=== PATIENT | female | born 1980 | race Two or more races ===

== ENCOUNTER → 2024-06-23 08:27 | Outpatient (AMB) | payer OTHER, SELFPAY ==
--- NOTE | 2024-06-23 08:32 | MHC.PC.OV ---
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 Accompanied by: Self / Same As Patient Allergies No Known Allergies Allergy (Verified 06/23/24 08:45) Medication List - Last Reconciled 06/23/24 by DELISA Pineda gabapentin 300 mg PO BID naproxen (EC-Naproxen) 500 mg PO BID Tobacco use date assessed: 06/23/24 Dental Screening Dental Screen Date: 06/23/24 Did you have a dental visit in the last 12 months?: Yes Did you have a dental problem in the last 6 months where you did not have access to dental care?: No Was dental information given to patient?: Patient has dentist HPI Fang, trigeminal neurvalgia, CLAIMS CUSTOMER SERVICE REPRESENTATIVE HPI Details The patient is a 43-year-old female with history of endometriosis presenting for post hospital visit at [facility] The patient presented with ongoing of right side of face shooting pain The patient previously treated in the Urgent care for upper respiratory infection with augmentin and flonase and an antihistamine Reports that her congestion resolved by the shooting pain persisted The patient was diagnosed at [facility] trigeminal neuralgia Head CT was not completed because both the machines were down at [place] The patient was offered to be [place] [facility] but opted to follow up outpatient instead Will put in a neurology referral The patient reports that she has been taking the Gabapentin as needed because she does not like taking medications Reports that the other night, she did not take the even dose and she was awaken at 0100 in the morning with a terrible headache She is also taking naproxen BID as needed The patient denies pain in office today. Normal neurological exam PFSH Family History Other Breast cancer Diabetes Stomach cancer Social History Housing: House Patient Tobacco Use Status: Never used Tobacco e-Cigarette/Vaping Use: Never Used Second Hand Smoke Exposure: No service: No Current occupational status: unemployed Current occupational exposures/hazards: No Cognitive needs: No Hearing needs: No Vision needs: Yes Questionnaire PHQ-9 Over the last 2 weeks, how often have you been bothered by any of the following problems? 1. Little interest or pleasure in doing things: not at all 2. Feeling down, depressed, or hopeless: not at all 3. Trouble falling or staying asleep, or sleeping too much: not at all 4. Feeling tired or having little energy: not at all 5. Poor appetite or overeating: not at all 6. Feeling bad about yourself - or that you are a failure or have let yourself or your family down: not at all 7. Trouble concentrating on things, such as reading the newspaper or watching television: not at all 8. Moving or speaking so slowly that other people could have noticed. Or the opposite - being so fidgety or restless that you have been moving around a lot more than usual: not at all 9. Thoughts that you would be better off or of hurting yourself in some way: not at all Total score: 0 Source: Developed by Drs. Ruddy Belle, Sheila Ramos, Jony Bucio and colleagues, with an educational jw from [employer] Thrive Questionnaire Date Thrive assessed: 06/23/24 I am a: Patient What is your living situation today?: I have a steady place to live Within the past 12 months, did the food you bought not last and you didn't have the money to get more?: Never true Within the past 12 months, did you worry whether your food would run out before you got money to buy more?: Never true Do you have trouble paying for medicines?: No Do you have trouble getting transportation to medical appointments?: No Do you have trouble paying your heating and electricity bill?: No Do you have trouble taking care of your child, family member or friend?: No Do you have trouble with day-to-day activities such as bathing, preparing meals, shopping, managing finances, etc.?: No Are you currently unemployed and looking for a job?: No Are you interested in more education?: No Please select the resources that you would like help with: None Currently or been in a relationship where the following occur: No concerns reported THRIVE Score: 0 AUDIT C Alcohol Use Questionnaire (AUDIT-C) 1. How often do you have a drink containing alcohol?: Never 3. How often do you have six or more drinks on one occasion?: Never Total Score: 0 RICHARD-7 AMB Questionnaire RICHARD-7 Date RICHARD - 7 assessed: 06/23/24 Feeling nervous, anxious, or on edge: 0 = Not at all Not being able to stop or control worryin = Not at all Worrying too much about different things: 0 = Not at all Trouble relaxin = Not at all Being so restless that it is hard to sit still: 0 = Not at all Becoming easily annoyed or irritable: 0 = Not at all Feeling afraid as if something awful might happen: 0 = Not at all Total RICHARD-7 score (0-4 normal; 5-9 mild; 10-14 moderate; 15-21 severe): 0 Source: Developed by Drs. Ruddy Belle, Sheila Ramos, Jony Bucio and colleagues, with an educational jw from [employer] RICHARD-7 Assessment Billing RICHARD-7 Assessment Tool: RICHARD-7 Assessment 78112 Review of Systems Const Details: Denies chills, Denies fatigue, Denies fever(s), Denies headache(s) and Denies weakness HEENT Denies change in vision, Denies dizziness, Denies headache(s), Denies hearing loss, Denies nasal congestion, Denies sinus pain, Denies sinus pressure and Denies sore throat other: on and off shooting pain to the right side of her face Card Denies chest pain, Denies lightheadedness, Denies dyspnea and Denies other (palpitations) Resp Denies cough, Denies dyspnea and Denies wheezing GI Denies abdominal pain, Denies melena, Denies hematochezia, Denies change in bowel habits, Denies dyspepsia and Denies nausea Denies hematuria and Denies dysuria Musc Denies abnormal gait, Denies myalgias, Denies arthralgias, Denies numbness and Denies tingling Skin/Breast Denies rash, Denies unusual bruising and Denies wounds Neuro Denies abnormal gait, Denies dizziness, Denies headache(s), Denies memory loss, Denies numbness, Denies Sensory deficit (Neuro), Denies tingling and Denies weakness Psych Denies anxiety, Denies depression and Denies memory loss Endo Denies cold intolerance, Denies fatigue, Denies heat intolerance, Denies polydipsia and Denies polyuria Balaji/Lymph Denies easy bleeding and Denies easy bruising Aller/Immun Denies wheezing Physical exam (Primary Care) Vital Signs: Last Vital Signs Pulse 73 06/23/24 08:34 BP 104/70 06/23/24 08:34 Pulse Ox 97 06/23/24 08:34 Oxygen Delivery Method Room Air 06/23/24 08:34 BMI result Body Mass Index 24.2 Tobacco/Smoking Status: Tobacco use Status Tobacco use date assessed 06/23/24 06/23/24 08:42 Patient Tobacco Use Status Never used Tobacco 06/23/24 08:42 e-Cigarette/Vaping Use Never Used 06/23/24 08:42 PHQ-9: PHQ-9 Score PHQ-9: Total score 0 06/23/24 08:51 Thrive Assessment: Date of Thrive Assessment Date Thrive assessed 06/23/24 06/23/24 08:42 Currently or been in a relationship where the following occur: No concerns reported Const Other: General: no acute distress, well developed, alert and awake Nutritional Appearance: well nourished Orientation/consciousness: patient oriented x3 HENMT Head: Yes normocephalic and Yes atraumatic Ears: hearing grossly normal bilaterally and TM's normal bilaterally General nose exam: Normal external nose present and Normal nares present Mouth: Normal oral and palatal mucosa present and moist mucous membranes Teeth and gingiva: dentition normal Throat: Yes oropharynx normal Eyes Pupils: Equal, round and reactive pupils present and Pupil accommodation reflex normal EOM: EOMs intact bilaterally Neck Neck: Yes normal visual inspection, Yes no lymphadenopathy and Yes trachea midline Thyroid: Thyroid normal Carotids: no bruits Lymphatic: no lymphadenopathy noted Resp Effort & Inspection: normal respiratory effort Auscultation: clear to auscultation bilaterally Cardio Rate: regular rate Rhythm: regular rhythm Heart sounds: S1 normal heart sound present, S2 normal heart sound present, no gallops, no murmurs and no rubs Bruits: no abdominal aortic bruits and no carotid bruits GI Palpation (GI): No Abdominal aortic bruit present, Soft to palpation, nontender, No hepatosplenomegaly present and No Rebound tenderness present Auscultation: normal bowel sounds General: Yes no CVA tenderness Skin General: warm and dry. Normal skin color. Normal skin turgor Lesions: no lesions Rashes: no rashes Trauma: no lacerations or abrasions Wounds: no wounds Nails: normal Neuro General: patient oriented x3, gait normal and CN's II-XI intact bilaterally Cranial nerves: Yes Equal, round and reactive pupils present Cognition (Neuro): normal cognition Gait exam (Neuro): Normal gait present Motor exam (neuro): 5/5 motor strength present throughout Sensory Exam: No Sensory deficit (Neuro) Deep tendon reflexes (DTR's): Right patellar reflex intensity grade: 2+ and Left patellar reflex intensity grade: 2+ Extrem General: Yes normal to inspection, No edema and No calf tenderness Psych Appearance: grossly normal Affect: normal affect Attitude: cooperative Thought process: Normal thought process present Coding Level of Care Code Est Pt Level 3 (11869) Diagnoses Trigeminal neuralgia of right side of face G50.0 Additional Codes RICHARD-7 Assessment Billing - RCIHARD-7 Assessment Tool: RICHARD-7 Assessment 22357 ([id number]) Time Spent (min) 29 Assessment & Plan Assessment & Plan (1) Trigeminal neuralgia of right side of face: Comment: [facility] [phone] time in july or august, [place] Code(s): G50.0 - Trigeminal neuralgia Category: Medical Plan: Patient reports facial pain x3 weeks. Reports that she went to urgent care and was diagnosed with sinusitis. She was treated with Augmentin and oral decongestion, and nasal spray. Reports that her congestion went away but the pain in her face stayed. As a result the patient went to [facility]. She was diagnosed with trigeminal neuralgia and the patient was started on gabapentin 300 mg b.i.d. and naproxen 500 mg b.i.d. with positive effects. CT head was not completed due to machine issues. We will refer the patient to Neurology. Discussed with the patient to go to the ER if her pain becomes more severe or unrelenting Orders: Referrals Neurology Referral G50.0 - Trigeminal neuralgia Medications: New naproxen (EC-Naproxen) 500 mg PO BID 60 tabs 3RF gabapentin 300 mg PO BID 60 caps 3RF
[2024-06-23 08:34] VITALS: BP 104/70; PULSE 73; O2SAT 97; BMI 24.2
== END ==
DX: G50.0 Trigeminal neuralgia (principal)

== ENCOUNTER → 2024-06-23 08:27 | Outpatient (BNVA) | payer OTHER, SELFPAY | DX: G50.0 Trigeminal neuralgia (principal) | CPT/HCPCS: 96127 ==

== ENCOUNTER 2024-10-04 07:17 | Outpatient (AMB) | payer OTHER, SELFPAY ==
--- NOTE | 2024-10-04 07:33 | A.OFFPC_ITS ---
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 Symptoms began in May and include electric shock-like pain on the right side of her jaw and face, leading to severe restrictions in eating and communication. Initial treatment with 600 mg of Oxcarbazepine was increased to 900 mg per day, significantly improving her condition. A recent MRI of the brain was conducted, and an upcoming scan of the head and arteries is scheduled. She experiences mild anxiety, reports a history of Vitamin D insufficiency, and has been directed to take 2000 IU of Vitamin D daily. Her lifestyle includes no alcohol or tobacco use. Regarding family history, her father in 2020 from COVID-19 complications, exacerbated by hypertension and diabetes. Her mother, though previously serotonin-deficient and liver-compromised due to COVID-19, is currently stable. The patient has no known drug allergies and has previously undergone a tonsillectomy and breast implant surgery. The patient's head laceration was managed without sutures and is healing without signs of infection. - Tdap vaccine administered in 2020; nex t due in 2030. - Mammogram completed in February 2024; r esults were normal. - Vitamin D supplementation of 2000 IU d aily due to insufficiency. - No current alcohol or tobacco use. - Recent Pap smear in June with norm al results. - Upcoming monitoring for triglyceride l evels pending laboratory results. [facility] Surgical History History of bilateral breast implants History of tonsillectomy Family History (Updated 10/04/24 @ 07:52 by Roxanne Burgos MD) Father Essential hypertension Diabetes Coronary artery disease Mother No problems noted. Other Breast cancer Stomach cancer Social History Housing: House Patient Tobacco Use Status: Never used Tobacco e-Cigarette/Vaping Use: Never Used Second Hand Smoke Exposure: No service: No Current occupational status: unemployed Current occupational exposures/hazards: No Cognitive needs: No Hearing needs: No Vision needs: Yes Questionnaire PHQ-9 Over the last 2 weeks, how often have you been bothered by any of the following problems? 1. Little interest or pleasure in doing things: not at all 2. Feeling down, depressed, or hopeless: not at all 3. Trouble falling or staying asleep, or sleeping too much: not at all 4. Feeling tired or having little energy: not at all 5. Poor appetite or overeating: not at all 6. Feeling bad about yourself - or that you are a failure or have let yourself or your family down: not at all 7. Trouble concentrating on things, such as reading the newspaper or watching television: not at all 8. Moving or speaking so slowly that other people could have noticed. Or the opposite - being so fidgety or restless that you have been moving around a lot more than usual: not at all 9. Thoughts that you would be better off or of hurting yourself in some way: not at all Total score: 0 Depression Screening Interpretation: Negative Depression Screening Done: Yes 46559 - PHQ-9 Billing: Yes Source: Developed by Drs. Ruddy Belle, Sheila Ramos, Jony Bucio and colleagues, with an educational jw from [employer]. Thrive Questionnaire Date Thrive assessed: 09/27/24 I am a: Patient What is your living situation today?: I have a steady place to live Within the past 12 months, did the food you bought not last and you didn't have the money to get more?: I choose not to answer this question Within the past 12 months, did you worry whether your food would run out before you got money to buy more?: I choose not to answer this question Do you have trouble paying for medicines?: I choose not to answer this question Do you have trouble getting transportation to medical appointments?: No Do you have trouble paying your heating and electricity bill?: I choose not to answer this question Do you have trouble taking care of your child, family member or friend?: No Do you have trouble with day-to-day activities such as bathing, preparing meals, shopping, managing finances, etc.?: No Are you currently unemployed and looking for a job?: Yes Are you interested in more education?: I choose not to answer this question Please select the resources that you would like help with: None Currently or been in a relationship where the following occur: No concerns reported THRIVE Score: 0 AUDIT C Alcohol Use Questionnaire (AUDIT-C) 1. How often do you have a drink containing alcohol?: Never Total Score: 0 Score Reviewed/Action Taken: No RICHARD-7 AMB Questionnaire RICHARD-7 Date RICHARD - 7 assessed: 06/23/24 Feeling nervous, anxious, or on edge: 1 = Several days Not being able to stop or control worryin = Several days Worrying too much about different things: 1 = Several days Trouble relaxin = Not at all Being so restless that it is hard to sit still: 0 = Not at all Becoming easily annoyed or irritable: 0 = Not at all Feeling afraid as if something awful might happen: 0 = Not at all Total RICHARD-7 score (0-4 normal; 5-9 mild; 10-14 moderate; 15-21 severe): 3 Source: Developed by Drs. Ruddy Belle, Sheila Ramos, Jony Bucio and colleagues, with an educational jw from [employer]. RICHARD-7 Assessment Billing RICHARD-7 Assessment Tool: RICHARD-7 Assessment 97316 Review of Systems Const All systems reviewed & are unremarkable except as noted in HPI and below Card Denies chest pain at rest, Denies chest pain with activity, Denies edema, Denies irregular heart rhythm, Denies claudication, Denies dyspnea, Denies dyspnea on exertion, Denies orthopnea, Denies paroxysmal nocturnal dyspnea and Denies slow heart rate Resp Denies cough, Denies dyspnea and Denies dyspnea on exertion GI Denies abdominal pain, Denies change in bowel habits, Denies excessive flatus, Denies nausea and Denies vomiting Denies urinary incontinence, Denies urinary hesitancy and Denies urinary urgency Musc Denies abnormal gait, Denies atrophy, Denies deformity and Denies limited range of motion Skin/Breast Denies bleeding lesions, Denies changing lesions and Denies rash Neuro Denies abnormal gait, Denies behavioral changes and Denies lack of coordination Psych Denies behavioral changes Physical exam (Primary Care) Vital Signs: Last Vital Signs BP 108/70 10/04/24 07:36 BMI result Body Mass Index 23.0 Tobacco/Smoking Status: Tobacco use Status Tobacco use date assessed 06/23/24 10/04/24 07:41 Patient Tobacco Use Status Never used Tobacco 10/04/24 07:41 e-Cigarette/Vaping Use Never Used 10/04/24 07:41 PHQ-9: PHQ-9 Score PHQ-9: Total score 0 10/04/24 07:41 Depression Screening Interpretation: Negative Thrive Assessment: Date of Thrive Assessment Date Thrive assessed 09/27/24 10/04/24 07:41 Currently or been in a relationship where the following occur: No concerns reported HENSC Head: Yes normal to inspection, Yes normocephalic and Yes atraumatic Ears: external ears normal Eyes General: appearance normal, both eyes and all related structures Eyelids: Yes eyelids normal Conjunctivae: conjunctivae normal Neck Neck: Yes normal visual inspection and Yes supple Resp Effort & Inspection: normal respiratory effort Auscultation: clear to auscultation bilaterally Cardio Jugular venous distension: no JVD Rate: regular rate Rhythm: regular rhythm Heart sounds: S1 normal heart sound present and S2 normal heart sound present GI Inspection: Yes normal to inspection Palpation (GI): Soft to palpation and nontender Auscultation: normal bowel sounds Skin Other: clean cut in left hand General skin exam: no rashes or lesions noted Neuro General: no focal motor deficits Extrem General: Yes full ROM Psych Appearance: grossly normal Coding Level of Care Code Est Pt Level 3 (58161) Est Pt Prev Care 40-64y(58671) Diagnoses Physical exam Z00.00 Magnesium ammonium phosphate crystals present in urine R82.998 Additional Codes PHQ-9 - 22361 - PHQ-9 Billing: Yes ([id number]) RICHARD-7 Assessment Billing - RICHARD-7 Assessment Tool: RICHARD-7 Assessment 82921 ([id number]) Time Spent (min) 31 Assessment & Plan Assessment & Plan (1) Physical exam: Code(s): Z00.00 - Encounter for general adult medical examination without abnormal findings Category: Medical (2) Magnesium ammonium phosphate crystals present in urine: Code(s): R82.998 - Other abnormal findings in urine Category: Medical Plan During this evaluation, I focused on managing the patient's Trigeminal Neuralgia, which has improved with medication, and ensuring adequate monitoring of sodium levels due to potential side effects from Oxcarbazepine. I reinforced the need for adherence to previously established health maintenance protocols, including Vitamin D supplementation, while ensuring timely follow-ups for mammograms. An ultrasound for kidney assessment was also discussed and suggested to address recent possible amorphous crystals. Following our discussion, management strategies moving forward include focusing on adherence to the current regimen, evaluating upcoming diagnostic results, and ensuring proper follow-up on her head laceration care. Patient was informed and verbally consented to the use of an ambient scribe for clinic note documentation during this visit. I reviewed with the patient her diagnosis of Trigeminal Neuralgia and the current treatment plan with Oxcarbazepine, including the importance of monitoring for potential side effects such as hyponatremia. I highlighted the necessity of Vitamin D supplementation and planned further kidney evaluation via ultrasound to assess for stones. We also discussed the routine nature of upcoming screenings such as her mammogram and how they fit into her overall health maintenance program. The patient expressed understanding and agreed to adhere to the instructions and follow-up schedule. Lastly, regarding her recent head injury, I reassured her it appeared to be healing, emphasizing continued care with soap and water cleaning. Orders: Orders US renal BI Today R82.998 - Other abnormal findings in urine Lipid Panel Today Z00.00 - Encounter for general adult medical examination without abnormal findings Patient Instructions: - Continue Oxcarbazepine at the prescribed dose of 900 mg daily. - Monitor for side effects and report any new symptoms. - Take 2000 IU of Vitamin D daily. - Follow up on imaging appointments and await results. - Continue scheduled health screenings as advised. - Clean head laceration with soap and water and apply adhesive strips as needed.
[2024-10-04 07:36] VITALS: BP 108/70; BMI 23.0
== END 2024-10-04 08:04 | disposition home or self-care (01) ==
PROVIDERS: PCP Internal Medicine; Visit Provider Internal Medicine
DX: Z00.00 Encounter for general adult medical examination without abnormal findings (principal); R82.998 Other abnormal findings in urine

== ENCOUNTER → 2024-10-04 07:17 | Outpatient (BNVA) | payer OTHER, SELFPAY | PROVIDERS: Visit Provider Internal Medicine | DX: Z00.00 Encounter for general adult medical examination without abnormal findings (principal); G50.0 Trigeminal neuralgia; E55.9 Vitamin D deficiency, unspecified; R82.998 Other abnormal findings in urine | CPT/HCPCS: 96127 ==

== ENCOUNTER 2024-10-10 10:38 | Outpatient (REF) | payer OTHER, SELFPAY ==
[2024-10-10 14:45] LABS: Cholesterol 214 mg/dL (<200); HDL Cholesterol 75 mg/dL (>40); LDL Cholesterol Calculated 122 mg/dL (<100); Triglycerides 86 mg/dL (<150)
== END 2024-10-10 10:39 | disposition home or self-care (01) ==
LOC: HO.WFDLDS 10:38
PROVIDERS: Visit Provider Internal Medicine
DX: Z00.00 Encounter for general adult medical examination without abnormal findings (principal); Z13.6 Encounter for screening for cardiovascular disorders
CPT/HCPCS: 36415; 80061

== ENCOUNTER 2024-11-11 15:27 | Outpatient (REF) | payer OTHER, SELFPAY ==
--- NOTE | ~2024-11-11 | US_ITS ---
EXAMINATION: US KIDNEY BILATERAL HISTORY: R82.998 - MAGNESIUM AMMONIUM PHOSPHATE CRYSTALS PRESENT IN URINE TECHNIQUE: Real-time grayscale ultrasound imaging of the kidneys was performed and images were reviewed. COMPARISON: There are no prior studies available for comparison. FINDINGS: Right kidney: The right kidney measures 10.4 x 4.1 x 5.5 cm. Renal parenchymal echotexture and thickness are normal. There are no masses. There is a 3 mm nonobstructing calculus in the interpolar region. There is no hydronephrosis. Left Kidney: The left kidney measures 9.9 x 5.3 x 4.1 cm. There is limited visualization of the upper and lower poles. Renal parenchymal echotexture and thickness are otherwise normal. There are no masses. There is no hydronephrosis or renal calculi. US/US renal BI IMPRESSION: 3 mm nonobstructing right renal calculus. Limited visualization of the upper and lower poles of the left kidney. Otherwise unremarkable renal ultrasound. Electronically signed by: Ruddy Mccann MD 11/14/2024 07:01 AM EDT
== END 2024-11-11 15:28 | disposition home or self-care (01) ==
LOC: HO.US 15:27
PROVIDERS: PCP Internal Medicine; Visit Provider Internal Medicine
DX: R82.998 Other abnormal findings in urine (principal)
CPT/HCPCS: 76775

== ENCOUNTER → 2024-11-11 15:31 | Outpatient (BNV) | payer OTHER, SELFPAY | PROVIDERS: PCP Internal Medicine; Visit Provider Radiology Diagnostic Radiology | DX: N20.0 Calculus of kidney (principal) | CPT/HCPCS: 76775 ==

== ENCOUNTER 2025-02-17 14:11 | Outpatient (AMB) | payer OTHER, SELFPAY ==
--- NOTE | 2025-02-17 14:50 | MHC.OFFVIS ---
Intake Visit Reasons: Kidney stones Intake Note: New patient presents today for initial visit for kidney stones Urology Medication:None Blood Thinner:None Antibiotic Allergies:None Allergies No Known Allergies Allergy (Verified 02/17/25 14:50) Medication List - Last Reconciled 02/17/25 by Yoni Erickson MD oxcarbazepine mg PO HPI Comments Details: Trinity is here as a new patient evaluation for kidney stones. She had ultrasound November noted kidneys. History of Present Illness The patient is a 44-year-old female presenting with nephrolithiasis. She had an ultrasound in November that identified a 3 mm stone in the right kidney. This is her first experience with kidney stones, and she has not experienced any pain associated with it. In July, during a routine gynecological checkup, crystals were found in her urine, leading to further investigation. She reported increased urinary frequency and malodorous urine, prompting a urine test that confirmed the presence of crystals. She maintains a high fluid intake, consuming 65 to 80 ounces of water daily, and has adjusted her diet to reduce oxalate-rich foods. The patient also has a history of trigeminal neuralgia, for which she is under the care of a neurologist. She is currently taking oxcarbazepine 1200 mg daily to manage her symptoms. An MRI in November suggested a possible aneurysm, which is yet to be confirmed. Additionally, she has a history of endometriosis, diagnosed during her teenage years, which has contributed to infertility issues. She has an upcoming appointment with an infertility specialist. Results - Ultrasound (November): 3 mm stone in the right kidney - Urine test: Presence of crystals - MRI (November): Possible aneurysm Plan 1. Nephrolithiasis (Kidney Stones) - Recommend 24-hour urine collection to assess kidney stone risk factors. - Advise dietary modifications, including increased fluid intake and reduced oxalate consumption. - Plan follow-up ultrasound in November to monitor stone status. 2. Trigeminal Neuralgia - Continue current medication regimen with oxcarbazepine 1200 mg daily. - Follow up with neurologist for ongoing management. 3. Endometriosis - Patient to follow up with infertility specialist for further evaluation and management. [facility] Surgical History History of bilateral breast implants History of tonsillectomy Family History Father Essential hypertension Diabetes Coronary artery disease Mother No problems noted. Other Breast cancer Stomach cancer Social History Housing: House Patient Tobacco Use Status: Never used Tobacco e-Cigarette/Vaping Use: Never Used Second Hand Smoke Exposure: No service: No Current occupational status: unemployed Current occupational exposures/hazards: No Cognitive needs: No Hearing needs: No Vision needs: Yes Results AMB Urinalysis, Automated UA Leukoctes 0 Cheryl/uL Last Edit by Raven Jacobs on 02/17/25 17:04 UA Nitrite Negative Last Edit by Raven Jacobs on 02/17/25 17:04 UA Urobilinogen 0.2 mg/dL Last Edit by Raven Jacobs on 02/17/25 17:04 UA Protein 0 mg/dL Last Edit by Raven Jacobs on 02/17/25 17:04 UA pH 6.5 Last Edit by Raven Jacobs on 02/17/25 17:04 UA Blood 10 Giorgi/uL Last Edit by Raven Jacobs on 02/17/25 17:04 UA Specific [place] 1.010 Last Edit by Raven Jacobs on 02/17/25 17:04 UA Ketone Negative Last Edit by Raven Jacobs on 02/17/25 17:04 UA Bilirubin 0 mg/dL Last Edit by Raven Jacobs on 02/17/25 17:04 UA Glucose 0 mg/dL Last Edit by Raven Jacobs on 02/17/25 17:04 Results Reviewed Results Reviewed: Date of Service: 11/11/24 Procedure(s): US renal BI Accession Number(s): [id number] cc: Roxanne Givens MD~ EXAMINATION: US KIDNEY BILATERAL HISTORY: R82.998 - MAGNESIUM AMMONIUM PHOSPHATE CRYSTALS PRESENT IN URINE TECHNIQUE: Real-time grayscale ultrasound imaging of the kidneys was performed and images were reviewed. COMPARISON: There are no prior studies available for comparison. FINDINGS: Right kidney: The right kidney measures 10.4 x 4.1 x 5.5 cm. Renal parenchymal echotexture and thickness are normal. There are no masses. There is a 3 mm nonobstructing calculus in the interpolar region. There is no hydronephrosis. Left Kidney: The left kidney measures 9.9 x 5.3 x 4.1 cm. There is limited visualization of the upper and lower poles. Renal parenchymal echotexture and thickness are otherwise normal. There are no masses. There is no hydronephrosis or renal calculi. US/US renal BI IMPRESSION: 3 mm nonobstructing right renal calculus. Limited visualization of the upper and lower poles of the left kidney. Otherwise unremarkable renal ultrasound. Actually spooky the kidney stone is in the okay so I saw that you had Assessment & Plan Assessment & Plan Orders: Orders AMB Urinalysis Automated Today N20.0 - Calculus of kidney Coding
== END 2025-02-17 15:38 | disposition home or self-care (01) ==
LOC: HO.HUSH 14:12
PROVIDERS: PCP Internal Medicine; Visit Provider Urology
DX: N20.0 Calculus of kidney (principal)

== ENCOUNTER → 2025-02-17 14:11 | Outpatient (BNVA) | payer OTHER, SELFPAY | PROVIDERS: PCP Internal Medicine; Visit Provider Urology | DX: N20.0 Calculus of kidney (principal) | CPT/HCPCS: 81003 ==

== ENCOUNTER 2025-03-14 10:50 | Outpatient (AMB) | payer OTHER, SELFPAY ==
--- NOTE | 2025-03-14 10:54 | A.OFFPC_ITS ---
Vital Signs 03/14/25 10:55 Height 5 ft 2 in Weight 127 lb 2 oz BMI 23.2 BP 120/72 Blood Pressure Location Lt brachial Position Sitting Pulse 83 Pulse Source Pulse Oximeter Temp 97.3 F Temp Source Temporal Artery Scan Pulse Oximetry (%) 98 Oxygen Delivery Method Room Air Intake Visit Reasons: noise pain Allergies No Known Allergies Allergy (Verified 03/14/25 10:57) Medication List - Last Reconciled 03/14/25 by Joyce Verde MD fluticasone propionate 50 mcg/actuation (Flonase Allergy Relief) 2 sprays intranasal DAILY 7 days loratadine 10 mg PO DAILY oxcarbazepine mg PO Tobacco use date assessed: 03/14/25 Dental Screening Dental Screen Date: 03/14/25 Did you have a dental visit in the last 12 months?: Yes Did you have a dental problem in the last 6 months where you did not have access to dental care?: No Was dental information given to patient?: Patient has dentist HPI HPI Comments History of Present Illness Details The patient is a 44-year-old female presenting for evaluation of a lump-like sensation inside her left nostril. She first noticed the sensation approximately two to three weeks ago, initially believing it was a pimple but now describes it as a lesion with some volume and a different texture. Associated symptoms include difficulty breathing through the left nostril, some nasal congestion. She reported yellowish nasal discharge on the morning of the visit. She denies fever, chills, headaches, or epistaxis. She has taken Theraflu for the past couple of days for her current symptoms. The patient reports history of a sinus infection in June of this year, for which she was treated with antibiotics and Flonase. She also has a history of trigeminal neuralgia which began around the same time, for which she is taking oxcarbazepine 1200 mg. [facility] Surgical History History of bilateral breast implants History of tonsillectomy Family History Father Essential hypertension Diabetes Coronary artery disease Mother No problems noted. Other Breast cancer Stomach cancer Social History Housing: House Patient Tobacco Use Status: Never used Tobacco e-Cigarette/Vaping Use: Never Used Second Hand Smoke Exposure: No service: No Current occupational status: unemployed Current occupational exposures/hazards: No Cognitive needs: No Hearing needs: No Vision needs: Yes Questionnaire PHQ-9 Over the last 2 weeks, how often have you been bothered by any of the following problems? 1. Little interest or pleasure in doing things: not at all 2. Feeling down, depressed, or hopeless: not at all 3. Trouble falling or staying asleep, or sleeping too much: not at all 4. Feeling tired or having little energy: not at all 5. Poor appetite or overeating: not at all 6. Feeling bad about yourself - or that you are a failure or have let yourself or your family down: not at all 7. Trouble concentrating on things, such as reading the newspaper or watching television: not at all 8. Moving or speaking so slowly that other people could have noticed. Or the opposite - being so fidgety or restless that you have been moving around a lot more than usual: not at all 9. Thoughts that you would be better off or of hurting yourself in some way: not at all Total score: 0 Depression Screening Interpretation: Negative Depression Screening Done: Yes Source: Developed by Drs. Ruddy Belle, Sheila Ramos, Jony Bucio and colleagues, with an educational jw from [employer] App. Thrive Questionnaire Date Thrive assessed: 09/27/24 I am a: Patient What is your living situation today?: I have a steady place to live Within the past 12 months, did the food you bought not last and you didn't have the money to get more?: I choose not to answer this question Within the past 12 months, did you worry whether your food would run out before you got money to buy more?: I choose not to answer this question Do you have trouble paying for medicines?: I choose not to answer this question Do you have trouble getting transportation to medical appointments?: No Do you have trouble paying your heating and electricity bill?: I choose not to answer this question Do you have trouble taking care of your child, family member or friend?: No Do you have trouble with day-to-day activities such as bathing, preparing meals, shopping, managing finances, etc.?: No Are you currently unemployed and looking for a job?: Yes Are you interested in more education?: I choose not to answer this question Please select the resources that you would like help with: None Currently or been in a relationship where the following occur: No concerns reported THRIVE Score: 0 AUDIT C Alcohol Use Questionnaire (AUDIT-C) 1. How often do you have a drink containing alcohol?: Never 3. How often do you have six or more drinks on one occasion?: Never Total Score: 0 RICHARD-7 AMB Questionnaire RICHARD-7 Date RICHARD - 7 assessed: 06/23/24 Feeling nervous, anxious, or on edge: 1 = Several days Not being able to stop or control worryin = Several days Worrying too much about different things: 1 = Several days Trouble relaxin = Not at all Being so restless that it is hard to sit still: 0 = Not at all Becoming easily annoyed or irritable: 0 = Not at all Feeling afraid as if something awful might happen: 0 = Not at all Total RICHARD-7 score (0-4 normal; 5-9 mild; 10-14 moderate; 15-21 severe): 3 Source: Developed by Drs. Ruddy Belle, Sheila Ramos, Jony Bucio and colleagues, with an educational jw from [employer] App. Physical exam (Primary Care) Vital Signs: Last Vital Signs Temp 97.3 F 03/14/25 10:55 Pulse 83 03/14/25 10:55 BP 120/72 03/14/25 10:55 Pulse Ox 98 03/14/25 10:55 Oxygen Delivery Method Room Air 03/14/25 10:55 General: Well-appearing, alert, oriented ?3, in no acute distress. HEENT: Normocephalic, atraumatic, PERRLA, EOMI, no scleral icterus. External ears normal, tympanic membranes intact bilaterally, no erythema or effusion. Nasal mucosa erythematous, boggy edematous and enlarged left nostril inferior turbinate. Airflow mildly decreased on the left nostril. Posterior oropharyngeal mucosa erythema and cobblestoning. Neck Supple. No maxillary or frontal sinuses tenderness upon palpation Cardiovascular: RRR, S1-S2 appreciated, no murmurs, rubs or gallops. Respiratory: Lungs clear to auscultation bilaterally, no wheezes, rales or rhonchi. BMI result Body Mass Index 23.2 Tobacco/Smoking Status: Tobacco use Status Tobacco use date assessed 03/14/25 03/14/25 10:58 Patient Tobacco Use Status Never used Tobacco 03/14/25 10:58 e-Cigarette/Vaping Use Never Used 03/14/25 10:58 PHQ-9: PHQ-9 Score PHQ-9: Total score 0 03/14/25 10:58 Depression Screening Interpretation: Negative Thrive Assessment: Date of Thrive Assessment Date Thrive assessed 09/27/24 03/14/25 10:58 Currently or been in a relationship where the following occur: No concerns reported Coding Level of Care Code Est Pt Level 4 (55718) Diagnoses Allergic rhinitis, unspecified seasonality, unspecified trigger J30.9 Allergic rhinitis trigger: unspecified Allergic rhinitis seasonality: unspecified Post-nasal drip R09.82 Assessment & Plan Assessment & Plan (1) Allergic rhinitis: Code(s): J30.9 - Allergic rhinitis, unspecified Category: Medical Qualifiers: Allergic rhinitis trigger: unspecified Allergic rhinitis seasonality: unspecified Qualified Code(s): J30.9 - Allergic rhinitis, unspecified Plan: Patient's symptoms of intranasal turbinate erythema and enlargement along with posterior oropharyngeal cobblestoning most consistent allergic rhinitis and associated postnasal drip. Infectious etiology is less likely given absence of fever or significant purulent discharge or pain. Plan -start Flonase spray each nostril daily for 7 days then use as needed -start loratadine 10 mg 1 tablet daily -counseled to discontinue Theraflu due to the risk of rebound congestion from its phenylephrine component with use longer than three days. -follow up is recommended as needed if symptoms do not improve or she develops fever, purulent nasal discharge or sinus pain. (2) Post-nasal drip: Code(s): R09.82 - Postnasal drip Category: Medical Plan: as above Medications: New fluticasone propionate 50 mcg/actuation (Flonase Allergy Relief) administer into each nostril 2 sprays intranasal DAILY 16 grams 0RF 7 days loratadine 10 mg PO DAILY 30 tabs 0RF
[2025-03-14 10:55] VITALS: BP 120/72; PULSE 83; TEMP 36.3; O2SAT 98; BMI 23.2
--- OUTSIDE RECORDS SUMMARY | 2025-03-14 12:59 | XMS_ITS | Encounter Summary ---
Author Organization [facility] Address [address] [place] [id number] Phone Care Team Providers Care Lot Boss Name Role Phone Pcp, Unknown Primary Care Provider Unavailabl e Reason for Visit * Reason Onset Date Comments Yeast infection 03/10/2025 Encounter Details Date Type Department Care Team (Late st Contact Info) Description 03/10/2025 Telephone [facility] [address] [place] [address] [place] [id number] Soledad Gomez LPN [address] [place] [address] [email or web address] Yeast infection Social History Tobacco Use Types Packs/Day Years Used Date Smoking Tobacco: Never Smokeless Tobacco: Never Alcohol Use Standard Drinks/Week Comments No 0 (1 standard drink = 0.6 oz pur e alcohol) Education Answer Date Recorded Are you interested in more education? Not on sarah e 08/28/2022 Are you concerned about learning? Not on file 08/28/2022 No 08/28/2022 No 08/28/2022 Digital Access Answer Date Recorded No 09/29/2022 No 09/29/2022 Reliable internet access at home? Not on file 09/29/2022 Device with a working camera? Not on file Comments No Sex and Gender Information Value Date Recorded Sex Assigned at Female 05/11/2017 9:33 AM EST Legal Sex Female 7:57 PM EST Gender Identity Female 06/29/2017 4:37 PM EST Sexual Orientation Not on file documented as of this encounter Progress Notes * Octavia Gonzales RN - 03/10/2025 8:37 AM EST Sw patient, advised prescription has been sent in * Kristin Dunlap CNM - 03/10/2025 8:34 AM EST Rx sent * Soledad Gomez LPN - 03/10/2025 8:17 AM EST Pt called into office, started to have symptoms on Thursday, reports white vaginally discharge and vaginal itching with vulvar irritation also. She would like Diflucan rx sent in, and will also do Baking Soda sitzs baths, knows to avoid Lycra, tight clothing, things, and to wear all cotton underwear. documented in this encounter Plan of Treatment Not on file documented as of this encounter Visit Diagnoses Diagnosis Yeast infection- Primary documented in this encounter Additional Health Concerns Assessment Noted Time PHQ-9 Depression Total Score: 8 10/08/19 17 11:14 AM EDT PHQ-2 Depression Total Score: 0 09/09/19 18 1:00 PM EDT documented as of this encounter Care Teams Lot Boss Relationship Specialty Start Date End Date Pcp, Unknown PCP - General 05/13/24 documented as of this encounter Additional Source Comments The information contained in this document represents components of the legal health record. It is not the complete legal health record.[facility]
--- OUTSIDE RECORDS SUMMARY | 2025-03-14 12:59 | XMS_ITS | Clinical Summary ---
Author Organization [facility] Address [address] [place] [phone] Phone Care Team Providers Care Bag Tester Name Role Phone Pcp, Unknown Primary Care Provider Unavailabl e Allergies No known active allergies Medications naproxen (NAPROSYN) 500 MG tablet Take 1 tablet (500 mg total) by mouth 2 (two) times a day with meals. 30 tablet 2 9 Active Additional Information Patient not taking.Reported on 09/07/2024 gabapentin (NEURONTIN) 300 MG capsule Take 300 mg by mouth. 5 Active nitrofurantoin (MACROBID) 100 MG capsule Take 1 capsule (100 mg total) by mouth 2 (two) times a day. 10 capsule 5 Active Additional Information Patient not taking.Reported on 09/07/2024 OXcarbazepine (TRILEPTAL) 300 MG IMMEDIATE release tablet Take 300 mg by mouth 2 (two) times a day. 5 Active fluconazole (DIFLUCAN) 150 MG tabletIndicatio ns:Yeast infection To take 1 tablet x1 dose 1 tablet 5 Active Active Problems Problem Noted Date Diagnosed Date Vulvar irritation 09/07/2024 Assessment & Plan (09/07/2024 11:16 AM EDT): S/p antibx- cannot confirm yeast on micro, will treat empirically terazol 3 Female infertility 06/29/2024 Overview (09/07/2024): History of endometriosis reported and a surgery at age 17 2024- FHS 33, AMH low Assessment & Plan (09/07/2024 11:15 AM EDT): Refer to MAT at [facility] Assessment & Plan (06/29/2024 3:31 PM EST): Discussed that discussion regarding options for infertility treatment is best done after testing. However given age greater than 40, I also offered her a direct referral to the reproductive information security specialist given the decrease chance of success of any treatments. At this point she like to go with the testing. She is also waiting to see the recommendations from the neurologist regarding this new trigeminal neuralgia Reviewed the steps of the infertility evaluation, her overview of infertility testing and treatment, sent a message to our fertility nurse to reach out to her. Her is not a registered [facility] patient, he is going to talk to his primary about getting a semen analysis order Acne vulgaris 09/08/2017 Overview (09/08/2017): Hyperpigmented after inflammation, OCPs helped, Assessment & Plan (09/08/2017 1:16 PM EDT): Try benzaclin on back, if fails then Derm, History of oral aphthous ulcers 01/07/2017 Overview (09/08/2017): Recurrent with stress, TAC in orabase very helpful, Assessment & Plan (09/08/2017 1:30 PM EDT): better Assessment & Plan (01/07/2017 4:54 PM EDT): TAC in orabase, HSV swab, avoid stress Chronic bilateral low back pain without sciatica 04/07/2016 Overview (10/07/2016): 2017 neg plain Xray thoracolumbar, Assessment & Plan (09/08/2017 1:30 PM EDT): better Assessment & Plan (10/07/2016 10:01 AM EDT): Needs to get up and walk at work (try a timer), try accupuncture, back 3 months, image SI if exam distiller there Assessment & Plan (07/07/2016 4:09 PM EST): Tender low T spine, SI joints, and about C2 spinous process; reluctant to do full spine imaging but may be needed as no better with PT, says worst is low T spine so Xray of that, story sounds muscular, try accupuncture Assessment & Plan (04/07/2016 4:18 PM EST): No better with PT, localizes to SI joints but reluctant to Xray when having kids soon, try voltaren gel and see if better with time or if need to image SI joints Neck pain 04/07/2016 Overview (01/07/2017): Blames on sitting at computer all day, Declines PT says pilades/yoga help, Assessment & Plan (09/08/2017 1:30 PM EDT): better Assessment & Plan (01/07/2017 4:59 PM EDT): Declines PT says pilades/yoga help Assessment & Plan (10/07/2016 9:53 AM EDT): better Assessment & Plan (04/07/2016 4:02 PM EST): Better with time and PT Bilateral headache 12/19/2015 Overview (10/07/2016): Probably migraine with aura, flare with skipping meals, Assessment & Plan (09/08/2017 1:31 PM EDT): better Assessment & Plan (01/07/2017 4:58 PM EDT): Triggers not clear, try a diary to figure out the cause Assessment & Plan (10/07/2016 9:49 AM EDT): Discussed trigger avoidance Assessment & Plan (07/07/2016 3:51 PM EST): Better now Assessment & Plan (04/07/2016 4:09 PM EST): Better, rightly avoiding taking combined OCPs Assessment & Plan (12/19/2015 10:32 AM EDT): OCP likely contraindicated, will Write [facility], normal neuro so no imaging, identify triggers and reduce them, ? Triptan, early f/u Weight loss, unintentional 12/19/2015 Assessment & Plan (09/08/2017 1:31 PM EDT): resolved Assessment & Plan (01/07/2017 5:00 PM EDT): Now stable, ? Mood/stress related Assessment & Plan (10/07/2016 9:49 AM EDT): stopped Assessment & Plan (07/07/2016 3:49 PM EST): Fine now, says healthy diet Assessment & Plan (04/07/2016 3:53 PM EST): Gained 5# Assessment & Plan (12/19/2015 10:32 AM EDT): ? Mood/stress related, labs Mood disorder 12/19/2015 Overview (10/07/2016): Tearful, stressed, anxiety/depression Assessment & Plan (09/08/2017 1:26 PM EDT): Better as life is better, but relationship is still an issue and I again suggested therapy, needs to exdercise, Assessment & Plan (01/07/2017 5:03 PM EDT): Declines therapy or mind body, says yoga/pilades will help Assessment & Plan (10/07/2016 10:06 AM EDT): Says fine now but scores are not fully in remission, dislikes meds, needs to work on self care (diet, exercise, sleep etc) Assessment & Plan (07/07/2016 3:50 PM EST): Better as situation is improved Assessment & Plan (12/19/2015 10:24 AM EDT): ? Depression, resume exercise, PHQ9/GAD7, ? Meds, see therapist, early f/u Dysmenorrhea 12/17/2015 Overview (01/07/2017): Naproxen and chicken soup on day one very helpful, OCPs help but does not want to take them, Assessment & Plan (09/08/2017 1:31 PM EDT): Better, only day one hurts, naproxen works great Assessment & Plan (01/07/2017 4:58 PM EDT): Okay with naproxen, can live with it Assessment & Plan (04/07/2016 4:07 PM EST): Many symptoms day one of menses, blames on low BP but needs to check if BP is actually low, having trouble getting seen by [facility] and see if can help her with that, Drink lots of chicken soup when about to get menses and see if day one symptoms (pallor, lightheaded, nausea) better, see [facility] Endometriosis 12/17/2015 Overview (01/07/2017): Dx via L/S 1999 in [facility]. Treated w/ Aviane, but informed by her PCP to stop due to history of migraines, although not associated with aura. Rx Aygestin given 05/29/2016; better on OCPs but does not want to take them so uses naproxen, gets dysmenorrhea and clots with menses, Assessment & Plan (09/08/2017 1:31 PM EDT): Minor, tolerable Assessment & Plan (01/07/2017 4:56 PM EDT): Tolerable dysmenorrhea and clots, Assessment & Plan (10/07/2016 9:53 AM EDT): Off OCPs, doing okay now but may flare, Assessment & Plan (07/07/2016 3:50 PM EST): Better on progestin pill, see [facility] consult Assessment & Plan (04/07/2016 4:07 PM EST): Drink lots of chicken soup when about to get menses and see if day one symptoms (pallor, lightheaded, nausea) better, see [facility] Resolved Problems Problem Noted Date Diagnosed Date Resolved Date H/O breast augmentation 01/07/201706/05 Overview (01/07/2017): Done in 2005, discussed need for eventual replacement Assessment & Plan (09/08/2017 1:40 PM EDT): ? Left leakage, refer to plastics Assessment & Plan (01/07/2017 5:05 PM EDT): Suggested breast surgery consult at some point Encounters Date Type Department Care Team Description 03/10/2025 Telephone [facility] [address] [place] [address] [place] [address] Soledad Gomez LPN Yeast infection 03/01/2025 Telephone [facility] [address] [place] [address] [place] [address] Magali Posey MD Request For Records from Last 3 Months Immunizations Immunization Administration Dates Next Due DTaP 09/10/2012 MMR 07/07/2016 Varicella 07/07/2016 Family History Medical History Relation Comments Diabetes Father Hypertension Father Epilepsy Maternal Aunt POSTMENOPAUSAL BREAST CANCER Maternal Grandmothe r Epilepsy Maternal Uncle Anxiety disorder Mother stress and sero tonin deficiency Cataracts Mother Diabetes Mother Cancer Paternal Grandmother ? origin Blindness Neg Hx Macular degeneration Neg Hx Relation Status Comments Father Maternal Aunt Maternal Grandmother Maternal Uncle Mother Paternal Grandmother Social History Tobacco Use Types Packs/Day Years [...] PM EST Sexual Orientation Not on file Last Filed Vital Signs Vital Sign Reading Time Taken Comments Blood Pressure 104/72 09/07/2024 10:20 AM EDT Pulse 81 09/08/2017 1:01 PM EDT Temperature 36.7 C (98 F) 09/08/2017 1:01 PM EDT Respiratory Rate 16 09/08/2017 1:01 PM EDT Oxygen Saturation - - Inhaled Oxygen Concentration - - Weight 58.5 kg (129 lb) 09/07/2024 10:20 AM EDT Height 152.4 cm (5') 09/07/2024 10:20 AM EDT Body Mass Index 25.19 09/07/2024 10:20 AM EDT Plan of Treatment Health Maintenance Due Date Last Done Comments HEPATITIS C SCREENING 12/06/1999 DEPRESSION SCREENING 09/08/2018 09/08/2017, 10/07/2016 SCREENING FOR DIABETES 12/18/2018 12/19/2015 INFLUENZA VACCINE (#1) 2024 COVID-19 VACCINE (2 6 season) 2025 01/09/2021, 12/29/2020, 12/08/2020 MAMMOGRAM 06/08/2026 06/08/2024 PAP SMEAR 06/08/2029 06/08/2024, 12/17/2015, 12/17/2015 Adult Td,Tdap Booster 01/10/2031 01/10/2021 HIV ONE-TIME SCREENING (18-6 5 YEARS) Completed 09/08/2017 SMOKING STATUS SCREENING (On ce After 26 Yrs) Completed 06/29/2024 HEPATITIS A VACCINES Aged Out No long er eligible based on patient's age to complete this topic HIB VACCINES Aged Out No longer eligi ble based on patient's age to complete this topic IPV VACCINES Aged Out No longer eligi ble based on patient's age to complete this topic MENINGOCOCCAL VACCINES (ACWY) Aged Out No longer eligible based on patient's age to complete this topic MENINGOCOCCAL VACCINES (B) Aged Out N o longer eligible based on patient's age to complete this topic PNEUMOCOCCAL VACCINES (0-49 years) Aged Out No longer eligible b ased on patient's age to complete this topic Medical Devices Not on file Procedures Procedure Name Priority Date/Time Associated Diagnosis Comments BI MAMMOGRAM SCREENING (BILATERAL) Routine 06/08/2024 9:53 AM EST Encounter for gynecological examination without abnormal finding PAP TEST Routine 06/08/2024 12:00 AM EST from Last 3 Months or Most Recently Relevant to Health Maintenance Results * Pap Test (06/08/2024 12:00 AM EST) Report [address] [id number] Decorating Machine Operator: Nikunj Cross MD SAS ADMINISTRATOR Cytology Report FINAL DIAGNOSIS A. PAP SMEAR (THIN PREP) CE: SPECIMEN ADEQUACY: Satisfactory for evaluation; transformation zone present. INTERPRETATION: NEGATIVE FOR INTRAEPITHELIAL LESION OR MALIGNANCY. This specimen was analyzed by the automated ThinPrep Imaging System ([employer] and the selected jay were reviewed by a cut press operator. Electronically Signed Out By: Nikunj Cross MD By his/her signature above, the pathologist listed as making the Final Diagnosis certifies that he/she has personally reviewed this case and confirmed or corrected the diagnosis. The Pap test is a screening test primarily for squamous cancers and precursors and has associated false-negative and false-positive results. New technologies such as liquid-based preparations may decrease but will not eliminate all false-negative results. Regular sampling and follow-up of unexplained clinical signs and symptoms are recommended to minimize false negative results. PROCEDURES/ADDENDA HPV Testing (Requested) Ordered Date: 06/09/2024 A. PAP SMEAR (THIN PREP) CE: High-risk HPV Panel w/ extended genotyping NEG HPV 16-NEG HPV 18-NEG HPV 45-NEG HPV 33/58-NEG HPV 31-NEG HPV 56/59/66-NEG HPV 51-NEG HPV 52-NEG HPV 35/39/68-NEG Performed by real-time polymerase chain reaction (PCR) at [facility], [address] [place] [address] using the FDA-approved BD Onclarity9 HPV Assay with extended genotyping. Uses of the assay in scenarios other than those approved by the FDA should be considered off-label use. The accuracy and precision of this test for all other off-label specimen sources has been verified in the Cytopathology Laboratory of the [facility] and has not been cleared or approved by the U.S. Food and Drug Administration. Clinical correlation is advised. The assay assesses the E6/E7 DNA target and utilizes human beta globin as an internal control. Cytology and HPV testing are screening assays and should not be used as the sole means of detecting cancer. False-positives and false-negatives can occur. CLINICAL HISTORY Date of Last Menstrual Period: 05-20-2024 Other Clinical Conditions: Screening Pap SPECIMEN SOURCE A: PAP SMEAR (THIN PREP) CE Patient Name: GABRIELLA PORTER : 1980 (Age: 43) Sex: F Institution: [facility] Location: [facility] Date of Collection: 06/08/2024 Date of Reported: 06/16/2024 09:15 Results to: Magali Posey MD [facility] Final Diagnosis A. PAP SMEAR (THIN PREP) CE: SPECIMEN ADEQUACY: Satisfactory for evaluation; transformation zone present. INTERPRETATION: NEGATIVE FOR INTRAEPITHELIAL LESION OR MALIGNANCY. This specimen was analyzed by the automated ThinPrep Imaging System ([employer] and the selected jay were reviewed by a cut press operator. [facility] Results\Inter pretation A. PAP SMEAR (THIN PREP) CE: High-risk HPV Panel w/ extended genotyping NEG HPV 16-NEG HPV 18-NEG HPV 45-NEG HPV 33/58-NEG HPV 31-NEG HPV 56/59/66-NEG HPV 51-NEG HPV 52-NEG HPV 35/39/68-NEG Performed by real-time polymerase chain reaction (PCR) at [facility], [address] [place] [address] using the FDA-approved BD Onclarity HPV Assay with extended genotyping. Uses of the assay in scenarios other than those approved by the FDA should be considered off-label use. The accuracy and precision of this test for all other off-label specimen sources has been verified in the Cytopathology Laboratory of the [facility] and has not been cleared or approved by the U.S. Food and Drug Administration. Clinical correlation is advised. The assay assesses the E6/E7 DNA target and utilizes human beta globin as an internal control. Cytology and HPV testing are screening assays and should not be used as the sole means of detecting cancer. False-positives and false-negatives can occur. [facility] Conversion Type (Conversion Source) 06/08/2024 06/09/2024 9:42 AM EST Magali Posey MD CYTOLOGY ORDERABLES Edited Resul t - Final [facility] [address] [place] [address] from Last 3 Months or Most Recently Relevant to Health Maintenance Insurance [facility] [address] [place] [address] [place] [address] [place] [address] [place] [address] Care Teams Bag Tester Relationship Specialty Start Date End Date Pcp, Unknown PCP - General 05/13/24 Additional Source Comments The information contained in this document represents components of the legal health record. It is not the complete legal health record.[facility]
== END 2025-03-14 11:29 | disposition home or self-care (01) ==
LOC: HO.HMCH 10:51
PROVIDERS: PCP Internal Medicine; Visit Provider Student in an Organized Health Care Education/Training Program
DX: J30.9 Allergic rhinitis, unspecified (principal); R09.82 Postnasal drip